=== PATIENT | male | born 1980 | race Caucasian/White ===

== ENCOUNTER → 2020-03-10 | Outpatient (CLI) | payer BC ==
--- NOTE | 2020-03-10 17:32 | RAD ---
MR#: [id number] Date of Study: 03/10/2020 Ordering Physician: EDGAR PRASAD, Referring Physician: BETH VARGAS Tech: JAY Giang ARRT (R) (N) APPROVED REPORT Test Type: Exercise Stress Nurse/Tech: Octavia Cotter RN Test Indications: Atypical chest pain Cardiac History: Family history Medications: See Electronic Medical Record Medical History: See Electronic Medical Record Resting ECG: SR Resting Heart Rate: 62 bpm Resting Blood Pressure: 121/72mmHg Pretest Chest Pain: No chest pain Nurse/Tech Notes S1,S2 and lungs clear to auscultation. Patient accidentally hit the red stop button on the treadmill and test had to be completed in two parts. Consent: The procedure was explained to the patient in lay terms. Informed consent was witnessed. Stanley eout was entered into [facility]. History and Stress Test performed by JAY Giang ARRT (R) (N) Stress Symptoms No chest pain or symptoms. POST EXERCISE Reason for Termination: Reached target heart rate Target HR: Yes Max HR: 161 bpm 89% of Maximum Predicted HR: 161 bpm Exercise duration: 10:50 min:sec, 4 Stage Exercise capacity: 13.4METs Max Blood Pressure: 152/86mmHg Blood Pressure response to exercise: Normal blood pressure response during stress. Heart Rate response to exercise: WNL Chest Pain: No. Arrhythmia: No. ST Change: No. INTERPRETATION Stress EKG Conclusion: The resting EKG shows a sinus rhythm with mild nonspecific ST-T wave changes. The stress EKG shows no significant changes from baseline. No EKG evidence of stress-induced ischemia. Imaging Protocol IMAGE PROTOCOL: Rest Tc-99m/stress Tc-99m 1 day Rest: Stress: Viability: Radiopharm.Tc99m NozthafxmFt65m Sestamibi Iwfp28wFx 32mCi Img Date 03/10/2020 03/10/2020 Inj-Img [id number]. 60min. Rest Admin Site:IV - Right AntecubitalAdministrator:JAY Giang ARRT ([place])(N) Stress Admin Site: IV - Right AntecubitalAdministrator: Pinky Vazquez, RT (R)(N) STRESS DATA End Diast. Vol.111.0mlAv. Heart Rate73.0bpm End Syst. Vol.44.0mlCO Index BSA0.0L/min Myocardial Tmgw810.0gEject. Kowhrgpx84.0% Stress Rates Pk. Fill Rate3.13EDV/secLVtime Pk. Fill 98.48msec Pk. Empty Rate2.84ESV/secLVtime Pk. Tdwbh165.19msec / Pk. Fill2.16EDV/sec Stress Scores Regional WT0.00Summed WT2.00 Regional WM0.00Summed WM5.00 LV Perfusion The stress scans showed no significant defects. The rest scans showed no significant defects. Nuclear imaging shows no reversible ischemia or infarct. Wall Motion Left ventricular systolic function is normal with no regional wall motion abnormalities and an ejecti on fraction of 60%. LV Perf. Quant 17 Seg. SSS0.00 17 Seg. SRS0.00 17 Seg. SDS0.00 Stress Defect Extent (% LAD)0.00Rest Defect Extent (% LAD)0.00Rev. Defect Extent (% LAD)0.00 Stress Defect Extent (% LCX) 0.00Rest Defect Extent (% LCX)0.00Rev. Defect Extent (% LCX)0.00 Stress Defect Extent (% RCA)0.00Rest Defect Extent (% RCA)0.00Rev. Defect Extent (% RCA)0.00 Stress Defect Extent (% DELROY)0.00Rest Defect Extent (% DELROY)0.00Rev. Defect Extent (% DELROY)0.00 Conclusion 1. Good exercise tolerance with the patient walking for 10 minutes and 50 seconds on a Rubio protocol . 2. No reported chest pain with exertion. 3. No EKG evidence of stress-induced ischemia. 4. Nuclear imaging shows no reversible ischemia or infarct. 5. Good LV systolic function with an ejection fraction of 60%. 6. Low risk treadmill nuclear stress test. Signed by : Sergio Zhang MD Electronically Approved : 03/10/2020 17:32:21
== END ==
LOC: NM 08:46
PROVIDERS: ATTEND Physician Assistant Medical
DX: R07.89 Other chest pain (principal)
CPT/HCPCS: 78452; 93017; A9500